=== PATIENT | male | born 1995 | race American Indian/Alaskan Native ===

== ENCOUNTER 2020-10-16 07:50 | Emergency (ER) | payer MEDICAID, OTHER ==
[2020-10-16 09:50] LABS: Hematocrit 34.4 % (35.5-45.6); Mean Corpuscular HGB Conc 35 % (32-34); Mean Corpuscular Volume 78 fl (84-94); Red Blood Count 4.39 M/mm3 (3.65-5.03)
[2020-10-16 10:08] LABS: Blood Urea Nitrogen 14 mg/dL (9-20); Calcium 9.5 mg/dL (8.4-10.2); Hemolysis Index 9
[2020-10-16 10:09] LABS: BUN/Creatinine Ratio 20
[2020-10-16 10:16] LABS: Platelet Count 74 K/mm3 (140-440)
[2020-10-16] MEDS ORDERED: SODIUM CHLORIDE 0.9% 1000 ML 1,000 ML IV ONE (10:36)
[2020-10-16] MEDS ORDERED: ONDANSETRON 4 MG ODT TAB PO ONE (11:56)
[2020-10-16] MEDS ORDERED: MORPHINE 4 MG/1 ML INJ IM ONE ×2 (11:56→14:46)
--- NOTE | 2020-10-16 12:05 | Emergency Department Report ---
ED General Adult HPI - General Chief complaint: Sickle Cell Crisis Stated complaint: SICKLE CELL PAIN Time Seen by Provider: 10/16/20 11:55 Source: patient Mode of arrival: Ambulatory Limitations: No Limitations - History of Present Illness Initial comments: Patient is a 25-year-old male presents emergency room complaints of sickle cell pain that began approximately 2 days ago. He states that the pain is in his right forearm. He states his pain typically is in his arms or his legs. He denies any chest pain, shortness of breath, fever, chills, nausea, vomiting, diarrhea. He denies any sick contacts or recent travel. He denies any numbness or weakness. He states he has a history of sickle cell trait and is not currently on any medications. He states he previously used to go to the sickle cell clinic at [place] but has not been there in approximately 2 years. No allergies to medications. - Related Data Previous Rx's Medication Instructions Recorded Last Taken Type Acetaminophen [Tylenol] 650 mg PO Q8HR PRN #30 capsule 10/16/20 Unknown Rx Ibuprofen [Motrin 600 MG tab] 600 mg PO Q8H PRN #20 tablet 10/16/20 Unknown Rx Allergies Allergy/AdvReac Type Severity Reaction Status Date / Time No Known Allergies Allergy Verified 10/16/20 08:35 ED Review of Systems ROS: Stated complaint: SICKLE CELL PAIN Other details as noted in HPI Comment: All other systems reviewed and negative ED Past Medical Hx - Past Medical History Previous Medical History?: Yes Additional medical history: Sickle cell - Surgical History Past Surgical History?: No - Medications Home Medications: Home Medications Medication Instructions Recorded Confirmed Last Taken Type Acetaminophen [Tylenol] 650 mg PO Q8HR PRN #30 capsule 10/16/20 Unknown Rx Ibuprofen [Motrin 600 MG tab] 600 mg PO Q8H PRN #20 tablet 10/16/20 Unknown Rx ED Physical Exam - General Limitations: No Limitations General appearance: alert, in no apparent distress - Head Head exam: Present: atraumatic, normocephalic - Eye Eye exam: Present: normal appearance - ENT ENT exam: Present: mucous membranes moist - Respiratory Respiratory exam: Present: normal lung sounds bilaterally. Absent: respiratory distress, wheezes, rales, rhonchi, stridor, chest wall tenderness, accessory muscle use, decreased breath sounds, prolonged expiratory - Cardiovascular Cardiovascular Exam: Present: regular rate, normal rhythm, normal heart sounds. Absent: systolic murmur, diastolic murmur, rubs, gallop - Extremities Exam Extremities exam: Present: other (mild ttp to the right forearm, FROM of the RUE, compartments are soft, no edema of the RUE, neurovascuarly intact) - Neurological Exam Neurological exam: Present: alert, oriented X3 - Psychiatric Psychiatric exam: Present: normal affect, normal mood - Skin Skin exam: Present: warm, dry, intact ED Course Vital Signs 10/16/20 10/16/20 10/16/20 08:38 12:03 16:40 Temperature 98 F Pulse Rate 74 71 Respiratory 16 18 Rate Blood Pressure 136/93 115/64 [Left] O2 Sat by Pulse 96 98 99 Oximetry ED Medical Decision Making - Lab Data Result diagrams: 10/16/20 09:14 10/16/20 09:14 Lab Results 10/16/20 10/16/20 Range/Units 09:14 09:14 WBC 8.7 (4.5-11.0) K/mm3 RBC 4.39 (3.65-5.03) M/mm3 Hgb 12.0 (11.8-15.2) gm/dl Hct 34.4 L (35.5-45.6) % MCV 78 L (84-94) fl MCH 27 L (28-32) pg MCHC 35 H (32-34) % RDW 19.0 H (13.2-15.2) % Plt Count 74 L (140-440) K/mm3 Add Manual Diff Complete Total Counted 100 Seg Neuts % (Manual) 79.0 H (40.0-70.0) % Lymphocytes % (Manual) 12.0 L (13.4-35.0) % Monocytes % (Manual) 6.0 (0.0-7.3) % Eosinophils % (Manual) 2.0 (0.0-4.3) % Basophils % (Manual) 1.0 (0.0-1.8) % Nucleated RBC % Not Reportable Seg Neutrophils # Man 6.9 (1.8-7.7) K/mm3 Band Neutrophils # 0.0 K/mm3 Lymphocytes # (Manual) 1.0 L (1.2-5.4) K/mm3 Abs React Lymphs (Man) 0.0 K/mm3 Monocytes # (Manual) 0.5 (0.0-0.8) K/mm3 Eosinophils # (Manual) 0.2 (0.0-0.4) K/mm3 Basophils # (Manual) 0.1 (0.0-0.1) K/mm3 Metamyelocytes # 0.0 K/mm3 Myelocytes # 0.0 K/mm3 Promyelocytes # 0.0 K/mm3 Blast Cells # 0.0 K/mm3 WBC Morphology Not Reportable Hypersegmented Neuts Not Reportable Hyposegmented Neuts Not Reportable Hypogranular Neuts Not Reportable Smudge Cells Not Reportable Toxic Granulation Not Reportable Toxic Vacuolation Not Reportable Dohle Bodies Not Reportable Pelger-Huet Anomaly Not Reportable Benito Rods Not Reportable Platelet Estimate Not Reportable Clumped Platelets Not Reportable Plt Clumps, EDTA Not Reportable Large Platelets Not Reportable Giant Platelets Not Reportable Platelet Satelliting Not Reportable Plt Morphology Comment Not Reportable RBC Morphology Normal Dimorphic RBCs Not Reportable Polychromasia Not Reportable Hypochromasia Not Reportable Poikilocytosis Not Reportable Anisocytosis Not Reportable Microcytosis Not Reportable Macrocytosis Not Reportable Spherocytes Not Reportable Pappenheimer Bodies Not Reportable Sickle Cells Not Reportable Target Cells Not Reportable Tear Drop Cells Not Reportable Ovalocytes Not Reportable Helmet Cells Not Reportable Iqbal-[place] Bodies Not Reportable Goodwin Rings Not Reportable Ledy Cells Not Reportable Bite Cells Not Reportable Crenated Cell Not Reportable Elliptocytes Not Reportable Acanthocytes (Spur) Not Reportable Rouleaux Not Reportable Hemoglobin C Crystals Not Reportable Schistocytes Not Reportable Malaria parasites Not Reportable Percent Retic 3.58 H (0.78-2.58) % Haim Bodies Not Reportable Hem Pathologist Commnt No Sodium 138 (137-145) mmol/L Potassium 3.8 (3.6-5.0) mmol/L Chloride 102.8 (98-107) mmol/L Carbon Dioxide 24 (22-30) mmol/L Anion Gap 15 mmol/L BUN 14 (9-20) mg/dL Creatinine 0.7 L (0.8-1.3) mg/dL Estimated GFR > 60 ml/min BUN/Creatinine Ratio 20 % Glucose 94 (75-100) mg/dL Calcium 9.5 (8.4-10.2) mg/dL Vital Signs 10/16/20 10/16/20 10/16/20 08:38 12:03 16:40 Temperature 98 F Pulse Rate 74 71 Respiratory 16 18 Rate Blood Pressure 136/93 115/64 [Left] O2 Sat by Pulse 96 98 99 Oximetry - Medical Decision Making Patient is a 25-year-old male presents emergency room complaints of sickle cell pain that began approximately 2 days ago. He states that the pain is in his right forearm. He states his pain typically is in his arms or his legs. He denies any chest pain, shortness of breath, fever, chills, nausea, vomiting, diarrhea. He denies any sick contacts or recent travel. He denies any numbness or weakness. He states he has a history of sickle cell trait and is not currently on any medications. He states he previously used to go to the sickle cell clinic at [place] but has not been there in approximately 2 years. No allergies to medications. Vitals are normal. On exam:mild ttp to the right forearm, FROM of the RUE, compartments are soft, no edema of the RUE, neurovascuarly intact. No clinical signs of acute arterial occlusion or acute DVT at this time. Labs are stable. No leukocytosis. No significant anemia. Reticulocyte count is only 3. Patient given medications while in the emergency department as he did not drive with improvement of his symptoms. Advised patient Please take medication as prescribed as needed. Follow-up with a primary care doctor. Follow-up with a halal meat packer. Your platelet counts are low, you need to have this repeated with primary care or hematology. Return to emergency room for any new or worsening symptoms. Critical care attestation.: If time is entered above; I have spent that time in minutes in the direct care of this critically ill patient, excluding procedure time. ED Disposition Clinical Impression: Sickle cell pain crisis, Thrombocytopenia Disposition: [id number] TO HOME OR SELFCARE Is pt being admited?: No Does the pt Need Aspirin: No Condition: Stable Additional Instructions: Please take medication as prescribed as needed. Follow-up with a primary care doctor. Follow-up with a halal meat packer. Your platelet counts are low, you need to have this repeated with primary care or hematology. Return to emergency room for any new or worsening symptoms. Prescriptions: Ibuprofen [Motrin 600 MG tab] 600 mg PO Q8H PRN #20 tablet PRN Reason: Pain Acetaminophen [Tylenol] 650 mg PO Q8HR PRN #30 capsule PRN Reason: pain Referrals: [facility] HEMATOLOGY ONCOLOGY [Provider Group] - 2-3 Days ENZO MALCOLM MD [Staff Physician] - 2-3 Days Time of Disposition: 12:03 Print Language: MARSHALLESE
[2020-10-16 16:41] VITALS: BP 115/64
[2020-10-16 17:10] LABS: RBC Morphology Normal; Total Cells Counted 100
== END 2020-10-16 16:41 | disposition home or self-care (01) ==
LOC: ED 07:50
DX: D57.00 Hb-SS disease with crisis, unspecified (principal); D69.6 Thrombocytopenia, unspecified; Z79.899 Other long term (current) drug therapy
CPT/HCPCS: 36415; 80048; 85007; 85025; 85045; 96360; 96372; 99283; J2270; J7030; Q0162